=== PATIENT | female | born 1960 | race Caucasian/White ===

== ENCOUNTER 2017-05-22 05:30 | Day surgery (SDC) | payer OTHER ==
[~2017-05-22] VITALS: Ht 157.5 cm; Wt 68.7 kg
[~2017-05-22 05:30] MED LIST: ADDERALL XR 2525 MG PO; ASCORBIC ACID500 M3 PO; ASCRIPTIN 325325 MG PO; ASPIR 8181 M1 PO; CALCIUM 500 +1 EAC5 PO; CALCIUM CITRAT1 EAC1 PO; CRANBERRY500 M2 PO; EFFEXOR37.5 MG PO; ENABLEX7.5 MG PO; ESTRADIOL2 MG PO; FISH OIL 1,0001 EAC7 PO; FISH OIL 1,0001 EACH PO; GRAPE SEED25 MG PO; LIPITOR20 MG PO; MULTIVITAMIN1 EAC2 PO; PRINIVIL20 MG PO; REQUIP0.5 MG PO; SILVADENE,SSD,T50 GM TP; STOOL SOFT-STI1 EACH PO; VITAMIN B COMP1 EACH PO
[2017-05-22] MEDS ORDERED: PROAIR HFA8.5 GM IH (06:12)
[2017-05-22] MEDS ORDERED: ARMONAIR RESPI55 MCG IH (06:13)
[2017-05-22 06:20] VITALS: BP 122/68
[2017-05-22] MEDS ORDERED: NORCO 5/3251 TABLET PO (09:22)
[2017-05-22 11:35] VITALS: BP 150/66
[2017-05-22 12:30] VITALS: BP 148/77
== END 2017-05-22 12:45 | disposition home or self-care (01) ==
LOC: SDC 05:30
DX: K80.10 Calculus of gallbladder with chronic cholecystitis without obstruction (principal); E78.5 Hyperlipidemia, unspecified; E78.4 Other hyperlipidemia; G35 Multiple sclerosis; I10 Essential (primary) hypertension; Z79.82 Long term (current) use of aspirin; Z88.8 Allergy status to other drugs, medicaments and biological substances
CPT/HCPCS: 74300; 88304; 93005; C1769; J0131; J0330; J1100; J1170; J1885; J2405; J2710; J3010; S0020; S0074